=== PATIENT | male | born 1980 | race Hispanic/Latino ===

== ENCOUNTER → 2021-12-16 | Outpatient (CLI) | payer OTHER ==
[~2021-12-16] MED LIST: PROHANCE 279.3MG/ML 15ML VIAL As Ordered ONE; PROHANCE 279.3MG/ML 5ML VIAL As Ordered ONE
== END ==
LOC: M RAD 07:35 → EDUNIT# 09:00
PROVIDERS: ATTEND Physical Medicine & Rehabilitation
DX: M51.36 Other intervertebral disc degeneration, lumbar region (principal)

== ENCOUNTER 2023-05-24 13:52 | Emergency (ER) | payer OTHER ==
[~2023-05-24] VITALS: Ht 170.2 cm; Wt 81.8 kg
[2023-05-24 13:53] VITALS: TEMP 96.4
[2023-05-24] MEDS ORDERED: methylPREDNISolone 125MG 2ML VIAL IV ONE (14:50)
[2023-05-24] MEDS ORDERED: diazePAM 10MG/2ML SYRINGE IV ONE ×2 (14:50→15:40)
[2023-05-24] MEDS ORDERED: NS 1,000 ML IV ONE (14:50)
[2023-05-24] MEDS ORDERED: GABA-1171 PO (15:20)
[2023-05-24] MEDS ORDERED: KETOROLAC 30 MG/ML 1ML VIAL IV ONE (15:40)
[2023-05-24 16:37] VITALS: BP 134/92; O2SAT 97
[2023-05-24] MEDS ORDERED: PREG50CA PO (16:54)
== END 2023-05-24 17:09 | disposition home or self-care (01) ==
LOC: M ED 13:52
DX: G62.9 Polyneuropathy, unspecified (principal); Z98.890 Other specified postprocedural states; Z88.5 Allergy status to narcotic agent
CPT/HCPCS: 72110; 73630; 93971; 96361; 96374; 96375; 96376; 99284; J1885; J2930; J3360

== ENCOUNTER 2024-03-09 11:41 | Day surgery (SDC) | payer OTHER ==
[~2024-03-09] VITALS: Ht 170.2 cm; Wt 85.2 kg
[~2024-03-09 11:41] MED LIST changes: +DULO1CAP6 PO; +GABA-1171 PO; +GABA600T4 PO; +METH-1164 PO; +NS 1,000 ML IV ONE; +OMEP40CA5 PO; +PREG100C2 PO; +PREG50CA PO; -PROHANCE 279.3MG/ML 15ML VIAL As Ordered ONE; -PROHANCE 279.3MG/ML 5ML VIAL As Ordered ONE
[2024-03-09] MEDS ORDERED: fentaNYL 100 MCG/2 ML INJECTION As Ordered ONE (13:34)
[2024-03-09] MEDS ORDERED: LIDOCAINE 2% 100MG/5ML SDV (FOR ANES.) As Ordered ONE (13:59)
[2024-03-09] MEDS ORDERED: propofoL 200 MG/20 ML VIAL As Ordered ONE (13:59)
[2024-03-09 14:21] VITALS: TEMP 97.2
[2024-03-09 14:44] VITALS: BP 125/86; O2SAT 98
== END 2024-03-09 14:46 | disposition home or self-care (01) ==
LOC: M OPP 11:41
PROVIDERS: ATTEND Internal Medicine Gastroenterology
DX: K64.0 First degree hemorrhoids (principal); R10.84 Generalized abdominal pain; K22.89 Other specified disease of esophagus; K22.70 Barrett's esophagus without dysplasia; G47.30 Sleep apnea, unspecified; Z99.89 Dependence on other enabling machines and devices; Z87.891 Personal history of nicotine dependence; Z79.891 Long term (current) use of opiate analgesic; Z79.899 Other long term (current) drug therapy
CPT/HCPCS: 43239; 45378; 88305; J3010

== ENCOUNTER → 2024-03-10 | Outpatient (REF) ==
[~2024-03-10] MED LIST changes: -NS 1,000 ML IV ONE
== END ==
LOC: MERGE 13:14 → M PLAIMG 13:14
PROVIDERS: ATTEND Nurse Practitioner Family
DX: R06.02 Shortness of breath (principal); M25.512 Pain in left shoulder; M25.571 Pain in right ankle and joints of right foot